=== PATIENT | male | born 1990 | race Caucasian/White ===

== ENCOUNTER 2018-05-21 13:59 | Emergency (ER) | payer SELFPAY ==
[2018-05-21] MEDS ORDERED: IPRATROPIUM/ALBUTEROL 3 ML DEYVIAL IH ONE (14:15)
[2018-05-21] MEDS ORDERED: predniSONE 20 MG TAB PO ONE (14:15)
--- NOTE | 2018-05-21 14:18 | EDPHY ---
H & P Time Seen by Provider: 05/21/18 14:09 HPI/ROS: CHIEF COMPLAINT: Coughing and short of breath HISTORY OF PRESENT ILLNESS: History of asthma since 1 years old, moved to [place] on March 27 and does not have local primary care provider. Last hospitalized at age 9. Has been having cough and wheezing for the last 4 days, unknown trigger. Symptoms moderate. Helped a little bit by a friend's inhaler which he used 2 days ago. Not associated with leg swelling fever chills or hemoptysis. No chest pain. Feels identical to previous asthma exacerbations. REVIEW OF SYSTEMS: Eye: no change in vision ENT: no sore throat Cardiac: no chest pain or syncope Pulmonary: HPI Abdomen: no vomiting, diarrhea, abdominal pain Musculoskeletal: no back pain Skin: no rash Neuro: no headache Constitutional: no fever : no urinary symptoms A comprehensive 10 point review of systems is otherwise negative aside from elements mentioned in the history of present illness. PAST MEDICAL HISTORY: Asthma, no history of PE or DVT. No recent travel or immobilization. Social history: Nonsmoker General Appearance: Alert and conversant, cooperative. Eyes: No scleral icterus. ENT, Mouth: Normal mucous membranes. Respiratory: Bilateral expiratory wheezing but speaks in full sentences and no retractions. Cardiovascular: Regular rate and rhythm. Gastrointestinal: Abdomen is soft and non tender. Neurological: Alert, face symmetric, normal motor and sensory in extremities. Skin: Warm and dry, no rashes. Musculoskeletal: No peripheral edema. No calf tenderness. Psychiatric: Not agitated. Emergency Department course/MDM: DuoNeb, 60 mg prednisone. Steroids discussed and consented. MDI and prednisone taper, primary care referral. Looks well, speaking in full sentences even with a saturation of 90%. Feels a lot better after 1st nebulizer treatment, will give a couple more and then discharge home. 1518: Feels better, less wheezing, saturation mid 90s on room air. Stable for discharge. Smoking Status: Never smoked Constitutional: Initial Vital Signs Temperature (C) 36.7 C 05/21/18 14:03 Heart Rate 73 05/21/18 14:03 Respiratory Rate 18 05/21/18 14:03 Blood Pressure 105/84 H 05/21/18 14:03 O2 Sat (%) 91 L 05/21/18 14:03 O2 Delivery Mode Room Air Allergies/Adverse Reactions: No Known Allergies Allergy (Unverified 05/21/18 14:02) Home Medications: Medication Instructions Recorded Albuterol Hfa Anes Only [Proair 2 puffs IH QID #1 mdi 05/21/18 Hfa Icu (*)] predniSONE 10 mg PO AD #15 tab 05/21/18 MDM/Departure - MDM Medications Given: Discontinued Medications Albuterol (Proventil Neb) 3 ml IH EDNOW ONE Stop: 05/21/18 14:25 Last Admin: 05/21/18 14:36 Dose: 3 ml Albuterol (Proventil Neb) 3 ml IH EDNOW ONE Stop: 05/21/18 14:54 Last Admin: 05/21/18 14:57 Dose: 3 ml Albuterol (Proventil Neb) 3 ml IH EDNOW ONE Stop: 05/21/18 14:54 Last Admin: 05/21/18 14:57 Dose: 3 ml Albuterol/Ipratropium (Duoneb) 3 ml IH EDNOW ONE Stop: 05/21/18 14:16 Last Admin: 05/21/18 14:22 Dose: 3 ml Prednisone (Prednisone) 60 mg PO EDNOW ONE Stop: 05/21/18 14:16 Last Admin: 05/21/18 14:22 Dose: 60 mg Differential Diagnosis: Differential diagnosis considered for shortness of breath including but not limited to pulmonary infectious process, COPD, asthma, pulmonary embolus and congestive heart failure. - Depart Disposition: Home, Routine, Self-Care Clinical Impression: Exacerbation of asthma Qualifiers: Asthma severity: moderate Asthma persistence: unspecified Qualified Code(s): J45.901 - Unspecified asthma with (acute) exacerbation Condition: Good Instructions: Albuterol (By breathing), Asthma (ED) Prescriptions: Albuterol Hfa Anes Only [Proair Hfa Icu (*)] 2 puffs IH QID #1 mdi predniSONE 10 mg PO AD #15 tab Referrals: [facility],. [Clinic] - 5-7 days, call for appt.
[2018-05-21] MEDS ORDERED: ALBUTEROL 3 ML DEYVIAL IH ONE ×3 (14:24→14:53)
[2018-05-21] MEDS ORDERED: ALBUTEROL 3 ML DEYVIAL ONE (14:53)
[2018-05-21 15:30] VITALS: BP 116/74
== END 2018-05-21 15:30 | disposition home or self-care (01) ==
DX: J45.901 Unspecified asthma with (acute) exacerbation (principal)
CPT/HCPCS: J7512; J7613

== ENCOUNTER 2018-08-27 18:05 | Emergency (ER) | payer SELFPAY ==
[2018-08-27] MEDS ORDERED: IPRATROPIUM/ALBUTEROL 3 ML DEYVIAL IH ONE (18:18)
[2018-08-27] MEDS ORDERED: predniSONE 20 MG TAB PO ONE (18:18)
--- NOTE | 2018-08-27 18:26 | EDPHY ---
H & P Smoking Status: Never smoked Time Seen by Provider: 08/27/18 18:12 HPI/ROS: CHIEF COMPLAINT: Asthma exacerbation HISTORY OF PRESENT ILLNESS: The patient is a 27 history of-year-old male with asthma here complaining of 3 days of worsening shortness of breath. Denies any fever or cough or runny nose sore throat. He has no sick contacts. States he has had asthma since he was a child but did not have an exacerbation for a long time until he moved to [place] this past summer. He was seen in April. Emergency room and was treated with albuterol and steroids improved. He currently has no albuterol at home for treatment. REVIEW OF SYSTEMS: Constitutional: No fever, no chills. Eyes: No discharge. ENT: No sore throat. Cardiovascular: No chest pain, no palpitations. Respiratory: + cough, + shortness of breath. Gastrointestinal: No abdominal pain, no vomiting. Genitourinary: No hematuria. Musculoskeletal: No back pain. Skin: No rashes. Neurological: No headache. (Jesus Villarreal) Physical Exam: General Appearance: Alert and no distress. ENT: normal dentition. No tonsillar exudate or swelling. Eyes: Pupils equal and round no injection. Respiratory: Chest is nontender, bilateral wheezing with no rhonchi or increased work of breathing Cardiac: regular rate and rhythm. No lower extremity edema Gastrointestinal: Abdomen is soft and nontender, no masses, bowel sounds normal. Musculoskeletal: Neck is supple and nontender. Extremities have full range of motion and are nontender without deformity Skin: No rashes or lesions. Neuro: Cranial nerves grossly intact. (Jesus Villarreal) Constitutional: Initial Vital Signs Temperature (C) 37.2 C 08/27/18 18:08 Heart Rate 82 08/27/18 18:08 Respiratory Rate 20 08/27/18 18:08 Blood Pressure 132/84 H 08/27/18 18:08 O2 Sat (%) 90 L 08/27/18 18:08 O2 Delivery Mode Room Air Allergies/Adverse Reactions: No Known Allergies Allergy (Verified 08/27/18 18:07) Home Medications: Medication Instructions Recorded Albuterol Hfa Anes Only [Proair 2 puffs IH QID PRN #1 mdi 08/27/18 Hfa Icu (*)] predniSONE 50 mg PO DAILY #3 tablet 08/27/18 Medical Decision Making ED Course/Re-evaluation: 27-year-old male here with shortness of breath for 3 days history and examination are consistent with asthma exacerbation. He was given 60 mg of prednisone and 1 DuoNeb feels significantly improved. Does still have faint wheezing but has no increased work of breathing is not hypoxic. He was discharged on 3-dull days of prednisone and an albuterol inhaler. (Jesus Villarreal) Differential Diagnosis: Asthma, pneumonia, CHF, influenza (Jesus Villarreal) Other Provider: I have evaluated and participated in the management of this patient. My co- signature indicates that I have reviewed this chart and that I agree with the findings and the plan of care as documented. My personal history and physical findings include: 27-year-old male with a history of reactive airway disease. He moved to [place] this year and has had worsening problems with his asthma since the move. He has been experiencing shortness of breath for the past 3 days. No fever cough. He does not have a local primary care physician. He was seen in the emergency department last summer and at that time treated with nebulizers and prednisone. At the time of my exam today he is awake and alert, lungs are clear, heart is regular rate and rhythm. He has received a DuoNeb. I anticipate discharge with referral to the outpatient [facility] and prescriptions for prednisone and an albuterol MDI. (Maddison Gomez) - Data Points Medications Given: Discontinued Medications Albuterol/Ipratropium (Duoneb) 3 ml IH EDNOW ONE Stop: 08/27/18 18:19 Last Admin: 08/27/18 18:21 Dose: 3 ml Prednisone (Prednisone) 60 mg PO ONCE ONE Stop: 08/27/18 18:19 Last Admin: 08/27/18 18:21 Dose: 60 mg Departure - Departure Disposition: Home, Routine, Self-Care Clinical Impression: Asthma exacerbation Qualifiers: Asthma severity: mild Asthma persistence: intermittent Qualified Code(s): J45.21 - Mild intermittent asthma with (acute) exacerbation Condition: Good Instructions: Albuterol (By breathing), Prednisone (By mouth), Asthma (ED) Referrals: Maxim Dunbar MD [Medical Doctor] - As per Instructions Prescriptions: Albuterol Hfa Anes Only [Proair Hfa Icu (*)] 2 puffs IH QID PRN #1 mdi PRN Reason: Wheezing predniSONE 50 mg PO DAILY #3 tablet
[2018-08-27 18:57] VITALS: BP 130/88
== END 2018-08-27 19:22 | disposition home or self-care (01) ==
DX: J45.21 Mild intermittent asthma with (acute) exacerbation (principal)
CPT/HCPCS: J7512